=== PATIENT | male | born 1990 | race Caucasian/White ===

== ENCOUNTER 2023-12-12 03:13 | Emergency (ER) | payer OTHER ==
[2023-12-12 03:42] VITALS: BP 128/84; PULSE 81; RESP 16; TEMP 98.2
[2023-12-12] MEDS: LIDOCAINE 4% PATCH TOPICAL ONE (03:54)
[2023-12-12] MEDS: KETOROLAC 15 MG/ML 1 ML VIAL IM STA (03:54)
--- NOTE | 2023-12-12 04:08 | ED ---
General Adult HPI - General Chief complaint: Back Pain/Injury Stated complaint: Workers comp-back pain Time Seen by Provider: 12/12/23 03:20 Source: patient, RN notes reviewed, old records reviewed Mode of arrival: ambulatory Limitations: no limitations - History of Present Illness Initial comments: Patient is a 33-year-old male who presents to the emergency department complaining of back pain. Patient presents from work for evaluation. Injury occurred at approximately 1:30 AM. Twisted his back strangely while throwing apart and has mid back pain. Denies any low back pain. States is just right of midline. Denies any difficulty in breathing. Denies any other obvious injuries. Presents for further evaluation at this time. Denies radiation of the pain. - Related Data Previous Rx's Medication Instructions Recorded Lidocaine 5% Patch [Lidoderm 5% 1 patch TOPICAL DAILY PRN 14 Days 12/12/23 Patch] #14 patch Allergies Allergy/AdvReac Type Severity Reaction Status Date / Time No Known Allergies Allergy Verified 12/12/23 03:22 Review of Systems ROS Statement: Those systems with pertinent positive or pertinent negative responses have been documented in the HPI. Review of Systems: CONST: Denies fever EYES: Denies blurry vision ENT: Denies nasal congestion C/V: Denies Chest pain RESP: Denies shortness of breath GI: Denies abdominal pain : Denies dysuria SKIN: Denies rash. MSK: Endorses mid back pain NEURO: Denies headache ROS Other: All systems not noted in ROS Statement are negative. 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 EYES: EOMI ENT: Hearing grossly intact, normal oropharynx. RESPIRATORY: Clear breath sounds bilaterally. No wheezes, rales, or rhonchi. C/V: Regular rate and rhythm. S1 and S2 auscultated ABD: Abd is soft, nontender, nondistended EXT: Normal range of motion, no obvious deformity. Mild paraspinal muscle tenderness to palpation of the mid lumbar spine. No obvious deformities palpated of the C, T, L spines. No significant midline tenderness of the C, T, L spines. SKIN: No rashes or lesions observed on exposed skin. NEURO: Alert and oriented x 4. No focal sensory or strength deficits. Limitations: no limitations Course Vital Signs 12/12/23 03:17 Temperature 98.2 F Pulse Rate 81 Respiratory 16 Rate Blood Pressure 128/84 O2 Sat by Pulse 99 Oximetry Medical Decision Making - Medical Decision Making Was pt. sent in by a medical professional or institution (, DOMENIC, MANNEQUIN WIG MAKER, urgent care, hospital, or [place] [facility] facility...) When possible be specific @ -No Did you speak to anyone other than the patient for history (EMS, parent, family, police, friend...)? What history was obtained from this source @ -No Did you review nursing and triage notes (agree or disagree)? Why? @ -I reviewed and agree with nursing and triage notes Were old charts reviewed (outside hosp., previous admission, EMS record, old EKG, old radiological studies, urgent care reports/EKG's, [place] [facility] facility records)? Report findings @ -No old charts were reviewed Differential Diagnosis (chest pain, altered mental status, abdominal pain women, abdominal pain men, vaginal bleeding, weakness, fever, dyspnea, syncope, headache, dizziness, GI bleed, back pain, seizure, CVA, palpatations, mental health, musculoskeletal)? @ -Differential Musculoskeletal Muscular strain, contusion, ligament sprain, fracture, arthritis, septic arthritis, bursitis, cellulitis, muscle spasm, nerve compression, DVT, arterial occlusion, herpes zoster, electrolyte abnormality, tumor.... This is not meant to be in all inclusive list EKG interpreted by me (3pts min.). @ -None done X-rays interpreted by me (1pt min.). @ -Patient's x-ray negative for any obvious traumatic injury. CT interpreted by me (1pt min.). @ -None done U/S interpreted by me (1pt. min.). @ -None done What testing was considered but not performed or refused? (CT, X-rays, U/S, labs)? Why? @ -None What meds were considered but not given or refused? Why? @ -None Did you discuss the management of the patient with other professionals (professionals i.e. , DOMENIC, MANNEQUIN WIG MAKER, lab, RT, psych nurse, forensic social worker, chicken raiser, teacher, security officer, shoe parts caser)? Give summary @ -No Was smoking cessation discussed for >3mins.? @ -No Was critical care preformed (if so, how long)? @ -No Were there social determinants of health that impacted care today? How? (Homelessness, low income, unemployed, alcoholism, drug addiction, transportation, low edu. Level, literacy, decrease access to med. care, care home, rehab)? @ -No Was there de-escalation of care discussed even if they declined (Discuss DNR or withdrawal of care, Hospice)? DNR status @ -No What co-morbidities impacted this encounter? (DM, HTN, Smoking, COPD, CAD, Cancer, CVA, ARF, Chemo, Hep., AIDS, mental health diagnosis, sleep apnea, morbid obesity)? @ -None Was patient admitted / discharged? Hospital course, mention meds given and route, prescriptions, significant lab abnormalities, going to OR and other pertinent info. @ -Presents with atraumatic back pain that seems to be most likely muscle strain however we will obtain x-ray of the thoracic spine. Patient be symptomatically treated with IM Toradol as well as lidocaine patch. Vital signs within acceptable limits. No other obvious injuries. Patient was in agreement this plan. X-ray negative for any obvious traumatic injury. Update the patient. He is feeling improved. He will be given a work note. Diagnosis is thoracic back strain. Strict return precautions discussed. No evidence of cauda equina syndrome at this time. I will provide the patient with a prescription for a cane patches. I instructed the patient to follow up with their PCP in the next 1-3 days.. I explained that the patient should return to the emergency department if they experience any worsening symptoms. Strict return precautions were discussed with the patient. The patient expressed understanding of these instructions. I answered all quest ions that the patient had. The patient was discharged home in good condition with their prescriptions and follow up information. Undiagnosed new problem with uncertain prognosis? @ -No Drug Therapy requiring intensive monitoring for toxicity (Heparin, Nitro, Insulin, Cardizem)? @ -No Were any procedures done? @ -No Diagnosis/symptom? @ -Strain of thoracic back Acute, or Chronic, or Acute on Chronic? @ -Acute Uncomplicated (without systemic symptoms) or Complicated (systemic symptoms)? @ -Uncomplicated Side effects of treatment? @ -None Exacerbation, Progression, or Severe Exacerbation] @ -No Poses a threat to life or bodily function? @ -No Disposition Clinical Impression: Strain of thoracic back region Disposition: HOME SELF-CARE Condition: Good Instructions (If sedation given, give patient instructions): Thoracic Back Strain (ED) Prescriptions: Lidocaine 5% Patch [Lidoderm 5% Patch] 1 patch TOPICAL DAILY PRN 14 Days #14 patch PRN Reason: Pain Is patient prescribed a controlled substance at d/c from ED?: No Referrals: None,Stated [Primary Care Provider] - 1-2 days Time of Disposition: 04:40
--- NOTE | 2023-12-12 04:29 | XR ---
EXAM: XR Thoracic Spine, 2 Views CLINICAL HISTORY: ITS.REASON XR Reason: pain mid t spine, atraumatic TECHNIQUE: Frontal and lateral views of the thoracic spine. COMPARISON: No relevant prior studies available. FINDINGS: Vertebrae: No acute fracture. Normal sagittal alignment. Disc spaces: No significant narrowing. Soft tissues: Unremarkable. IMPRESSION: No acute osseous findings.
== END 2023-12-12 04:45 | disposition home or self-care (01) ==
LOC: EC 03:13
DX: S29.012A Strain of muscle and tendon of back wall of thorax, initial encounter (principal); F17.200 Nicotine dependence, unspecified, uncomplicated; X50.1XXA Overexertion from prolonged static or awkward postures, initial encounter
CPT/HCPCS: 72070; 99283; 96372; J1885

== ENCOUNTER → 2023-12-19 | Outpatient (CLI) | payer OTHER ==
--- NOTE | 2023-12-19 12:01 | XR ---
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 5 lumbar type vertebral bodies. Vertebral body heights are pr eserved and alignment is maintained. Impression: No vertebral compression collapse or malalignment.
== END | disposition home or self-care (01) ==
LOC: RADXRMAIN 10:49
PROVIDERS: ATTEND Emergency Medicine
DX: S23.3XXA Sprain of ligaments of thoracic spine, initial encounter (principal); X58.XXXA Exposure to other specified factors, initial encounter
CPT/HCPCS: 72100

== ENCOUNTER 2023-12-30 11:24 | Emergency (ER) | payer OTHER ==
[2023-12-30 12:20] LABS: ALT 28 U/L (4-49); AST 28 U/L (17-59); African American GFR (CKD) >90 (>60 ml/min/1.73 sqM); Albumin 3.1 g/dL (3.5-5.0); Alkaline Phosphatase 86 U/L (38-126); Amylase 32 U/L (30-110); Anion Gap 4 mmol/L; Blood Urea Nitrogen 12 mg/dL (9-20); Calcium 8.2 mg/dL (8.4-10.2); Carbon Dioxide 27 mmol/L (22-30); Chloride 106 mmol/L (98-107); Glucose 100 mg/dL (74-99); Lipase 37 U/L (23-300); Non-African American GFR(CKD) >90 (>60 ml/min/1.73 sqM); Potassium 3.5 mmol/L (3.5-5.1); Sodium 137 mmol/L (137-145); Total Bilirubin 0.3 mg/dL (0.2-1.3); Total Protein 5.4 g/dL (6.3-8.2)
[2023-12-30 12:21] LABS: Basophils % (A) 1 %; Eosinophils # (A) 0.1 k/uL (0-0.7); Eosinophils % (A) 3 %; HCT 41.4 % (39.0-53.0); HGB 13.9 gm/dL (13.0-17.5); Lymphocytes # (A) 0.8 k/uL (1.0-4.8); Lymphocytes % (A) 18 %; MCH 30.2 pg (25.0-35.0); MCHC 33.6 g/dL (31.0-37.0); MCV 89.8 fL (80.0-100.0); Monocytes # (A) 0.5 k/uL (0-1.0); Monocytes % (A) 12 %; Neutrophils # (A) 2.8 k/uL (1.3-7.7); Neutrophils % (A) 65 %; Platelet Count 140 k/uL (150-450); RBC 4.61 m/uL (4.30-5.90); RDW 12.4 % (11.5-15.5); WBC 4.3 k/uL (3.8-10.6)
--- NOTE | 2023-12-30 12:24 | ED ---
General Adult HPI - General Chief complaint: Nausea/Vomiting/Diarrhea Stated complaint: vomiting Time Seen by Provider: 12/30/23 11:30 Source: patient, RN notes reviewed Mode of arrival: ambulatory Limitations: no limitations - History of Present Illness Initial comments: 33-year-old male presents to the emergency department for evaluation of nausea, vomiting, diarrhea x 2 days. He states that he has some diffuse abdominal discomfort associated with this. Patient reports that he is "unable to keep anything down." He has not been running fevers. Denies any recent antibiotic use or travel. - Related Data Previous Rx's Medication Instructions Recorded Lidocaine 5% Patch [Lidoderm 5% 1 patch TOPICAL DAILY PRN 14 Days 12/12/23 Patch] #14 patch Ondansetron Odt [Zofran Odt] 4 mg PO Q8HR PRN #10 tab 12/30/23 Allergies Allergy/AdvReac Type Severity Reaction Status Date / Time No Known Allergies Allergy Verified 12/12/23 03:22 Review of Systems ROS Statement: Those systems with pertinent positive or pertinent negative responses have been documented in the HPI. ROS Other: All systems not noted in ROS Statement are negative. 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 Absent: scleral icterus, conjunctival injection, periorbital swelling ENT exam: Present: normal exam, mucous membranes moist Neck exam: Present: normal inspection. Absent: tenderness, meningismus, lymphadenopathy Respiratory exam: Present: normal lung sounds bilaterally. Absent: respiratory distress, wheezes, rales, rhonchi, stridor Cardiovascular Exam: Present: regular rate, normal rhythm, normal heart sounds. Absent: systolic murmur, diastolic murmur, rubs, gallop, clicks GI/Abdominal exam: Present: soft, normal bowel sounds. Absent: distended, tenderness, guarding, rebound, rigid Extremities exam: Present: normal inspection, full ROM, normal capillary refill. Absent: tenderness, pedal edema, joint swelling, calf tenderness Back exam: Present: normal inspection Neurological exam: Present: alert, oriented X3 Psychiatric exam: Present: normal affect, normal mood Skin exam: Present: warm, dry, intact, normal color. Absent: rash Course Vital Signs 12/30/23 12/30/23 12/30/23 11:25 14:00 14:38 Temperature 97.4 F L 98.2 F 98.0 F Pulse Rate 89 84 80 Respiratory 16 18 20 Rate Blood Pressure 126/82 122/78 120/72 O2 Sat by Pulse 99 99 99 Oximetry Medical Decision Making - Medical Decision Making Was pt. sent in by a medical professional or institution (, PA, MISSION COORDINATOR, urgent care, hospital, or correction...) When possible be specific @ -No Did you speak to anyone other than the patient for history (EMS, parent, family, police, friend...)? What history was obtained from this source @ -No Did you review nursing and triage notes (agree or disagree)? Why? @ -I reviewed and agree with nursing and triage notes Were old charts reviewed (outside hosp., previous admission, EMS record, old EKG, old radiological studies, urgent care reports/EKG's, correction records)? Report findings @ -No old charts were reviewed Differential Diagnosis (chest pain, altered mental status, abdominal pain women, abdominal pain men, vaginal bleeding, weakness, fever, dyspnea, syncope, headache, dizziness, GI bleed, back pain, seizure, CVA, palpatations, mental health, musculoskeletal)? @ -Differential Abdominal Pain Men: Appendicitis, cholecystitis, diverticulosis, ischemic bowel, pancreatitis, hepatitis, UTI, gastroenteritis, AAA, incarcerated hernia, bowel obstruction, constipation, inflammatory bowel, hepatitis, peptic ulcer disease, splenic infarction, perforated viscus, testicular torsion, this is not meant to be an all-inclusive list EKG interpreted by me (3pts min.). @ -None X-rays interpreted by me (1pt min.). @ -None done CT interpreted by me (1pt min.). @ -None done U/S interpreted by me (1pt. min.). @ -None done What testing was considered but not performed or refused? (CT, X-rays, U/S, labs)? Why? @ -None What meds were considered but not given or refused? Why? @ -None Did you discuss the management of the patient with other professionals (professionals i.e. , PA, MISSION COORDINATOR, lab, RT, psych nurse, social welfare clerk, general magistrate, teacher, chief media officer, ed case manager)? Give summary @ -No Was smoking cessation discussed for >3mins.? @ -No Was critical care preformed (if so, how long)? @ -No Were there social determinants of health that impacted care today? How? (Homelessness, low income, unemployed, alcoholism, drug addiction, transportation, low edu. Level, literacy, decrease access to med. care, intermediate, rehab)? @ -No Was there de-escalation of care discussed even if they declined (Discuss DNR or withdrawal of care, Hospice)? DNR status @ -No What co-morbidities impacted this encounter? (DM, HTN, Smoking, COPD, CAD, Cancer, CVA, ARF, Chemo, Hep., AIDS, mental health diagnosis, sleep apnea, morbid obesity)? @ -None Was patient admitted / discharged? Hospital course, mention meds given and route, prescriptions, significant lab abnormalities, going to OR and other pertinent info. @ -Discharged. Patient presented to the emergency department for evaluation of nausea, vomiting, diarrhea x 2 days. He states that he is unable to keep anything down. Laboratory studies obtained which are essentially unremarkable including CBC, CMP, amylase, lipase. Patient was provided 2 L of normal saline in the emergency department along with Zofran. He states that he is feeling better after this. He is able to tolerate oral intake following this. Discussed symptomatic treatment at this time, hydrating and utilizing Zofran for nausea. Patient understanding agreeable with plan. Patient stable to discharge. Case discussed with Dr. Green Undiagnosed new problem with uncertain prognosis? @ -No Drug Therapy requiring intensive monitoring for toxicity (Heparin, Nitro, Insulin, Cardizem)? @ -No Were any procedures done? @ -No Diagnosis/symptom? @ -Gastroenteritis Acute, or Chronic, or Acute on Chronic? @ -Acute Uncomplicated (without systemic symptoms) or Complicated (systemic symptoms)? @ -Uncomplicated Side effects of treatment? @ -No Exacerbation, Progression, or Severe Exacerbation? @ -No Poses a threat to life or bodily function? How? (Chest pain, [place], [place], pneumonia, PE, COPD, DKA, ARF, appy, cholecystitis, CVA, Diverticulitis, Homicidal, Suicidal, threat to staff... and all critical care pts) @ -No - Lab Data Result diagrams: 12/30/23 11:57 12/30/23 11:57 Lab Results 12/30/23 12/30/23 12/30/23 Range/Units 11:57 11:57 11:57 WBC 4.3 (3.8-10.6) k/uL RBC 4.61 (4.30-5.90) m/uL Hgb 13.9 (13.0-17.5) gm/dL Hct 41.4 (39.0-53.0) % MCV 89.8 (80.0-100.0) fL MCH 30.2 (25.0-35.0) pg MCHC 33.6 (31.0-37.0) g/dL RDW 12.4 (11.5-15.5) % Plt Count 140 L (150-450) k/uL MPV 8.0 Neutrophils % 65 % Lymphocytes % 18 % Monocytes % 12 % Eosinophils % 3 % Basophils % 1 % Neutrophils # 2.8 (1.3-7.7) k/uL Lymphocytes # 0.8 L (1.0-4.8) k/uL Monocytes # 0.5 (0-1.0) k/uL Eosinophils # 0.1 (0-0.7) k/uL Basophils # 0.0 (0-0.2) k/uL Sodium 137 (137-145) mmol/L Potassium 3.5 (3.5-5.1) mmol/L Chloride 106 (98-107) mmol/L Carbon Dioxide 27 (22-30) mmol/L Anion Gap 4 mmol/L BUN 12 (9-20) mg/dL Creatinine 0.62 L (0.66-1.25) mg/dL Est GFR (CKD-EPI)AfAm >90 (>60 ml/min/1.73 sqM) Est GFR (CKD-EPI)NonAf >90 (>60 ml/min/1.73 sqM) Glucose 100 H (74-99) mg/dL Calcium 8.2 L (8.4-10.2) mg/dL Total Bilirubin 0.3 (0.2-1.3) mg/dL AST 28 (17-59) U/L ALT 28 (4-49) U/L Alkaline Phosphatase 86 (38-126) U/L Total Protein 5.4 L (6.3-8.2) g/dL Albumin 3.1 L (3.5-5.0) g/dL Amylase 32 (30-110) U/L Lipase 37 (23-300) U/L Influenza Type A (PCR) Not Detected (Not Detectd) Influenza Type B (PCR) Not Detected (Not Detectd) RSV (PCR) Not Detected (Not Detectd) SARS-CoV-2 (PCR) Not Detected (Not Detectd) Disposition Clinical Impression: Nausea & vomiting, Gastroenteritis Disposition: HOME SELF-CARE Condition: Stable Instructions (If sedation given, give patient instructions): Acute Nausea and Vomiting (ED) Additional Instructions: Please follow up with your primary care provider. Ensure you are hydrating well. Utilize nausea medication as needed. Return to the emergency department for new or worsening symptoms. Prescriptions: Ondansetron Odt [Zofran Odt] 4 mg PO Q8HR PRN #10 tab PRN Reason: Nausea Is patient prescribed a controlled substance at d/c from ED?: No Referrals: Domenico Lebron MD [Primary Care Provider] - 1-2 days
[2023-12-30] MEDS: ONDANSETRON 4 MG/2 ML VIAL IVP STA (12:48)
[2023-12-30] MEDS: SODIUM CHLORIDE 0.9% 2,000 ML IV STA (12:48)
[2023-12-30] MEDS: ONDANSETRON 4 MG ODT STARTER PACK 2 TAB BTL PO STA (14:35)
[2023-12-30 14:40] VITALS: BP 120/72; PULSE 80; RESP 20; TEMP 98
== END 2023-12-30 14:40 | disposition home or self-care (01) ==
LOC: EC 11:24
DX: K52.9 Noninfective gastroenteritis and colitis, unspecified (principal); F17.200 Nicotine dependence, unspecified, uncomplicated
CPT/HCPCS: 99284; 96374; 96361 ×2; 36415; 80053; 82150; 83690; 85025; 87636; J2405; S0119

== ENCOUNTER 2024-02-27 09:53 | Emergency (ER) | payer OTHER ==
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
[2024-02-27] MEDS: HYDROmorphone 0.5 MG/0.5 ML SYRINGE IM STA (10:38)
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
[2024-02-27 11:39] VITALS: BP 125/88; PULSE 90; RESP 18; TEMP 98.4
== END 2024-02-27 11:53 | disposition home or self-care (01) ==
LOC: EC 09:53
DX: S92.911A Unspecified fracture of right toe(s), initial encounter for closed fracture (principal); F17.200 Nicotine dependence, unspecified, uncomplicated; Z88.0 Allergy status to penicillin; W22.8XXA Striking against or struck by other objects, initial encounter; Y93.55 Activity, bike riding
CPT/HCPCS: 99283; 73130; 73562; 96372; J1170

== ENCOUNTER 2024-04-25 18:41 | Emergency (ER) | payer OTHER ==
[2024-04-25 19:05] VITALS: TEMP 98.1
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
[2024-04-25 21:52] VITALS: BP 128/78; PULSE 60; RESP 16
== END 2024-04-25 21:44 | disposition home or self-care (01) ==
LOC: EC 18:41
DX: S93.401A Sprain of unspecified ligament of right ankle, initial encounter (principal); F17.200 Nicotine dependence, unspecified, uncomplicated; F12.90 Cannabis use, unspecified, uncomplicated; Z88.0 Allergy status to penicillin; X50.0XXA Overexertion from strenuous movement or load, initial encounter
CPT/HCPCS: 99283

== ENCOUNTER 2024-05-09 01:07 | Emergency (ER) | payer OTHER ==
[2024-05-09 01:14] VITALS: RESP 16
[2024-05-09 02:01] LABS: Basophils % (A) 1 %; Eosinophils # (A) 0.1 k/uL (0-0.7); Eosinophils % (A) 2 %; HCT 38.7 % (39.0-53.0); HGB 13.1 gm/dL (13.0-17.5); Lymphocytes # (A) 1.2 k/uL (1.0-4.8); Lymphocytes % (A) 15 %; MCH 30.8 pg (25.0-35.0); MCHC 33.9 g/dL (31.0-37.0); MCV 90.9 fL (80.0-100.0); Monocytes # (A) 0.7 k/uL (0-1.0); Monocytes % (A) 9 %; Neutrophils # (A) 5.9 k/uL (1.3-7.7); Neutrophils % (A) 73 %; Platelet Count 195 k/uL (150-450); RBC 4.25 m/uL (4.30-5.90); RDW 12.7 % (11.5-15.5); WBC 8.1 k/uL (3.8-10.6)
--- NOTE | 2024-05-09 02:02 | ED ---
Dizziness HPI - General Chief Complaint: Syncope Stated Complaint: Possible Heat Stroke Time Seen by Provider: 05/09/24 01:58 Source: patient Mode of arrival: ambulatory Limitations: no limitations - History of Present Illness Initial Comments: Patient is a 33-year-old man who states that he was working tonight when he started to feel lightheaded, " like I was going to go out" patient states that it was rather hot at work and he was exerting himself. He did not have any chest pain or dyspnea. He was feeling lightheaded and like he was going to fall over. 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 He states that the symptoms have resolved. MD Complaint: lightheadedness, near syncope -: minutes(s) Timing: sudden onset Description: lightheadedness History of Trauma: No Severity: moderate Worsens With: exertion Associated Symptoms: denies other symptoms - Related Data Previous Rx's Medication Instructions Recorded Lidocaine 5% Patch [Lidoderm 5% 1 patch TOPICAL DAILY PRN 14 Days 12/12/23 Patch] #14 patch Ondansetron Odt [Zofran Odt] 4 mg PO Q8HR PRN #10 tab 12/30/23 Allergies Allergy/AdvReac Type Severity Reaction Status Date / Time Penicillins Allergy Swelling Verified 05/09/24 01:14 Review of Systems ROS Statement: Those systems with pertinent positive or pertinent negative responses have been documented in the HPI. ROS Other: All systems not noted in ROS Statement are negative. Constitutional: Denies: fever, chills, weakness Eyes: Denies: vision change Respiratory: Denies: cough, dyspnea Cardiovascular: Reports: syncope (Near Syncopal episode). 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 Absent: scleral icterus, conjunctival injection Neck exam: Present: normal inspection Respiratory exam: Present: normal lung sounds bilaterally. Absent: respiratory distress, wheezes, rales, rhonchi, stridor, accessory muscle use Cardiovascular Exam: Present: regular rate, normal rhythm, normal heart sounds. Absent: systolic murmur, diastolic murmur, rubs, gallop GI/Abdominal exam: Present: soft. Absent: distended, tenderness, guarding, rebound, rigid, mass Extremities exam: Present: normal inspection, normal capillary refill. Absent: pedal edema, calf tenderness Back exam: Present: normal inspection. Absent: CVA tenderness (R), CVA tenderness (L) Neurological exam: Present: alert Skin exam: Present: warm, dry, intact, normal color. Absent: rash Course Vital Signs 05/09/24 05/09/24 01:09 04:08 Temperature 97.9 F 98.2 F Pulse Rate 56 L 62 Respiratory 16 16 Rate Blood Pressure 123/77 128/79 O2 Sat by Pulse 98 98 Oximetry EKG Findings - EKG Results: EKG: interpreted by ERMD, sinus rhythm, normal QRS, normal ST/T EKG shows: bradycardia (Rate 52 bpm) - Blocks, [place], Hypertrophy, ST Abn: QRS axis and voltage: right axis deviation (+90 to +180) (Borderline right axis deviation) Medical Decision Making - Medical Decision Making Was pt. sent in by a medical professional or institution (, PA, MOLD STACKER, urgent care, hospital, or alf...) When possible be specific @ -[No] Did you speak to anyone other than the patient for history (EMS, parent, family, police, friend...)? What history was obtained from this source @ -[No] Did you review nursing and triage notes (agree or disagree)? Why? @ -[I reviewed and agree with nursing and triage notes] Were old charts reviewed (outside hosp., previous admission, EMS record, old EKG, old radiological studies, urgent care reports/EKG's, alf records)? Report findings @ -[No old charts were reviewed] Differential Diagnosis (chest pain, altered mental status, abdominal pain women, abdominal pain men, vaginal bleeding, weakness, fever, dyspnea, syncope, headache, dizziness, GI bleed, back pain, seizure, CVA, palpatations, mental health, musculoskeletal)? @ -Differential Syncope: Valvular disease, hypertrophic cardiomyopathy, pulmonary embolism, tamponade, tachycardia, bradycardia, OR, hypovolemia, hemorrhage, dissection, anemia, intracranial hemorrhage, seizure, hypoglycemia, carbon monoxide poisoning, this is not meant to be an all-inclusive list. EKG interpreted by me (3pts min.). @ -[I interpreted as above X-rays interpreted by me (1pt min.). @ -[None done] CT interpreted by me (1pt min.). @ -[None done] U/S interpreted by me (1pt. min.). @ -[None done] What testing was considered but not performed or refused? (CT, X-rays, U/S, labs)? Why? @ -[None] What meds were considered but not given or refused? Why? @ -[None] Did you discuss the management of the patient with other professionals (professionals i.e. , PA, MOLD STACKER, lab, RT, psych nurse, social media job titles, volcanologist, teacher, agricultural loan officer, pillowcase turner)? Give summary @ -[No] Was smoking cessation discussed for >3mins.? @ -[No] Was critical care preformed (if so, how long)? @ -[No] Were there social determinants of health that impacted care today? How? (Homelessness, low income, unemployed, alcoholism, drug addiction, transportation, low edu. Level, literacy, decrease access to med. care, assisted, re hab)? @ -[No] Was there de-escalation of care discussed even if they declined (Discuss DNR or withdrawal of care, Hospice)? DNR status @ -[No] What co-morbidities impacted this encounter? (DM, HTN, Smoking, COPD, CAD, Cancer, CVA, ARF, Chemo, Hep., AIDS, mental health diagnosis, sleep apnea, morbi d obesity)? @ -[None] Was patient admitted / discharged? Hospital course, mention meds given and ro drew, prescriptions, significant lab abnormalities, going to OR and other pertinent info. @ -[Patient is a 33-year-old man presenting with near syncopal episode at work. The patient's physical exam and workup unremarkable. ECG is normal sinus rhythm. Consistent with vasovagal syncope due to heat. Patient will be stable for further evaluation as outpatient Undiagnosed new problem with uncertain prognosis? @ -[No] Drug Therapy requiring intensive monitoring for toxicity (Heparin, Nitro, Insul in, Cardizem)? @ -[No] Were any procedures done? @ -[No] Diagnosis/symptom? @ -Acute near syncopal episode Acute, or Chronic, or Acute on Chronic? @ -[Acute Uncomplicated (without systemic symptoms) or Complicated (systemic symptoms)? @ -[Uncomplicated Side effects of treatment? @ -[No] Exacerbation, Progression, or Severe Exacerbation? @ -[No] Poses a threat to life or bodily function? How? (Chest pain, USA, OR, pneumonia, PE, COPD, DKA, ARF, appy, cholecystitis, CVA, Diverticulitis, Homicidal, Suicidal, threat to staff... and all critical care pts) @ -[No] - Lab Data Result diagrams: 05/09/24 01:56 05/09/24 01:56 Lab Results 05/09/24 05/09/24 Range/Units 01:56 01:56 WBC 8.1 (3.8-10.6) k/uL RBC 4.25 L (4.30-5.90) m/uL Hgb 13.1 (13.0-17.5) gm/dL Hct 38.7 L (39.0-53.0) % MCV 90.9 (80.0-100.0) fL MCH 30.8 (25.0-35.0) pg MCHC 33.9 (31.0-37.0) g/dL RDW 12.7 (11.5-15.5) % Plt Count 195 (150-450) k/uL MPV 8.0 Neutrophils % 73 % Lymphocytes % 15 % Monocytes % 9 % Eosinophils % 2 % Basophils % 1 % Neutrophils # 5.9 (1.3-7.7) k/uL Lymphocytes # 1.2 (1.0-4.8) k/uL Monocytes # 0.7 (0-1.0) k/uL Eosinophils # 0.1 (0-0.7) k/uL Basophils # 0.0 (0-0.2) k/uL Sodium 135 L (137-145) mmol/L Potassium 4.1 (3.5-5.1) mmol/L Chloride 104 (98-107) mmol/L Carbon Dioxide 26 (22-30) mmol/L Anion Gap 5 mmol/L BUN 16 (9-20) mg/dL Creatinine 0.76 (0.66-1.25) mg/dL Est GFR (CKD-EPI)AfAm >90 (>60 ml/min/1.73 sqM) Est GFR (CKD-EPI)NonAf >90 (>60 ml/min/1.73 sqM) Glucose 112 H (74-99) mg/dL Calcium 9.2 (8.4-10.2) mg/dL Total Bilirubin 0.4 (0.2-1.3) mg/dL AST 23 (17-59) U/L ALT 13 (4-49) U/L Alkaline Phosphatase 81 (38-126) U/L Total Protein 6.1 L (6.3-8.2) g/dL Albumin 3.9 (3.5-5.0) g/dL Disposition Clinical Impression: Near syncope Disposition: HOME SELF-CARE Condition: Good Is patient prescribed a controlled substance at d/c from ED?: No Referrals: Gab Beverly MD [Primary Care Provider] - 1-2 days
[2024-05-09 02:18] LABS: ALT 13 U/L (4-49); AST 23 U/L (17-59); African American GFR (CKD) >90 (>60 ml/min/1.73 sqM); Albumin 3.9 g/dL (3.5-5.0); Alkaline Phosphatase 81 U/L (38-126); Anion Gap 5 mmol/L; Blood Urea Nitrogen 16 mg/dL (9-20); Calcium 9.2 mg/dL (8.4-10.2); Carbon Dioxide 26 mmol/L (22-30); Chloride 104 mmol/L (98-107); Glucose 112 mg/dL (74-99); Non-African American GFR(CKD) >90 (>60 ml/min/1.73 sqM); Potassium 4.1 mmol/L (3.5-5.1); Sodium 135 mmol/L (137-145); Total Bilirubin 0.4 mg/dL (0.2-1.3); Total Protein 6.1 g/dL (6.3-8.2)
[2024-05-09] MEDS: SODIUM CHLORIDE 0.9% 1,000 ML IV ONE (03:07)
[2024-05-09 04:09] VITALS: BP 128/79; PULSE 62; TEMP 98.2
== END 2024-05-09 04:09 | disposition home or self-care (01) ==
LOC: EC 01:07
DX: R55 Syncope and collapse (principal); F17.200 Nicotine dependence, unspecified, uncomplicated; Z88.0 Allergy status to penicillin
CPT/HCPCS: 36415; 80053; 85025; 93005; 96360; 99284

== ENCOUNTER 2024-06-13 03:46 | Emergency (ER) | payer OTHER ==
[2024-06-13] MEDS: LORazepam 2 MG/ML INJ IV STA (04:47)
--- NOTE | 2024-06-13 04:49 | ED ---
Seizure HPI <Fidelina Gatica - Last Filed: 06/13/24 07:13> - General Source: patient, RN notes reviewed, old records reviewed Mode of arrival: wheelchair Limitations: no limitations - History of Present Illness MD Complaint: seizure, feel seizure coming on, loss of consciousness, shaking -: hour(s) Description of Episode: loss of consciousness, tonic-clonic movement -: second(s) Witnessed: yes - by bystander Trauma: Yes Seizure History: known seizure disorder Place: home <Miguel Angel Martinez - Last Filed: 06/15/24 22:51> - General Chief Complaint: Seizure Stated Complaint: Seizure Time Seen by Provider: 06/13/24 03:51 - History of Present Illness Initial Comments: This is a 33-year-old male with severe anxiety and seizure. Patient presents with seizure today for recurrent seizures due to stress (Miguel Angel Martinez) - Related Data Previous Rx's Medication Instructions Recorded Lidocaine 5% Patch [Lidoderm 5% 1 patch TOPICAL DAILY PRN 14 Days 12/12/23 Patch] #14 patch Ondansetron Odt [Zofran Odt] 4 mg PO Q8HR PRN #10 tab 12/30/23 Allergies Allergy/AdvReac Type Severity Reaction Status Date / Time Penicillins Allergy Swelling Verified 05/09/24 01:14 Review of Systems ROS Other: All systems not noted in ROS Statement are negative. <Fidelina Gatica - Last Filed: 06/13/24 07:13> ROS Other: All systems not noted in ROS Statement are negative. <Miguel Angel Martinez - Last Filed: 06/15/24 22:51> ROS Statement: Those systems with pertinent positive or pertinent negative responses have been documented in the HPI. 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 Absent: scleral icterus, conjunctival injection, periorbital swelling ENT exam: Present: normal exam, mucous membranes moist Neck exam: Present: normal inspection. Absent: tenderness, meningismus, lymphadenopathy Respiratory exam: Present: normal lung sounds bilaterally. Absent: respiratory distress, wheezes, rales, rhonchi, stridor Cardiovascular Exam: Present: regular rate, normal rhythm, normal heart sounds. Absent: systolic murmur, diastolic murmur, rubs, gallop, clicks GI/Abdominal exam: Present: soft, normal bowel sounds. Absent: distended, t enderness, guarding, rebound, rigid Extremities exam: Present: normal inspection, full ROM, normal capillary refill. Absent: tenderness, pedal edema, joint swelling, calf tenderness Back exam: Present: normal inspection Neurological exam: Present: alert, oriented X3, CN II-XII intact Psychiatric exam: Present: normal affect, normal mood Skin exam: Present: warm, dry, intact, normal color. Absent: rash <Miguel Angel Martinez - Last Filed: 06/15/24 22:51> Course <Miguel Angel Martinez - Last Filed: 06/15/24 22:51> Vital Signs 06/13/24 06/13/24 06/13/24 03:51 04:57 07:15 Temperature 98 F 98.8 F Pulse Rate 57 L 56 L 63 Respiratory 18 16 16 Rate Blood Pressure 141/95 123/83 O2 Sat by Pulse 100 97 99 Oximetry - Reevaluation(s) Reevaluation #1: 06/13/24 06:08 Medical records reviewed (Miguel Angel Martinez) Reevaluation #2: 06/13/24 06:08 Symptoms unchanged (Miguel Angel Martinez) Reevaluation #3: 06/13/24 06:08 Informed of results questions answered (Miguel Angel Martinez) Reevaluation #4: Was pt. sent in by a medical professional or institution (, PA, CRUSHER AND BLENDER OPERATOR, urgent care, hospital, or prison...) When possible be specific @ -no Did you speak to anyone other than the patient for history (EMS, parent, family, police, friend...)? What history was obtained from this source @ -no Did you review nursing and triage notes (agree or disagree)? Why? @ -agree Are old charts reviewed (outside hosp., previous admission, EMS record, old EKG, old radiological studies, urgent care reports/EKG's, prison records)? Report findings @ -yes Differential Diagnosis (chest pain, altered mental status, abdominal pain women, abdominal pain men, vaginal bleeding, weakness, fever, dyspnea, syncope, headache, dizziness, GI bleed, back pain, seizure, CVA, palpatations, mental health, musculoskeletal)? @ -prior EKG interpreted by me (3pts min.). @ -yes X-rays interpreted by me (1pt min.). @ -no CT interpreted by me (1pt min.). @ -no U/S interpreted by me (1pt. min.). @ -no What testing was considered but not performed or refused? (CT, X-rays, U/S, labs)? Why? @ -none What meds were considered but not given or refused? Why? @ -none Did you discuss the management of the patient with other professionals (professionals i.e. , PA, CRUSHER AND BLENDER OPERATOR, lab, RT, psych nurse, social secretary, rigging worker, t eacher, returning officer, case liner)? Give summary @ -no Was smoking cessation discussed for >3mins.? @ -no Was critical care preformed (if so, how long)? @ -no Were there social determinants of health that impacted care today? How? (Homelessness, low income, unemployed, alcoholism, drug addiction, transportation, low edu. Level, literacy, decrease access to med. care, group home, rehab)? @ -none Was there de-escalation of care discussed even if they declined (Discuss DNR or withdrawal of care, Hospice)? DNR status @ -no What co-morbidities impacted this encounter? (DM, HTN, Smoking, COPD, CAD, Cancer, CVA, ARF, Chemo, Hep., AIDS, mental health diagnosis, sleep apnea, morbid obesity)? @ -none Was patient admitted / discharged? Hospital course, mention meds given and route, prescriptions, significant lab abnormalities, going to OR and other pertinent info. @ - 33 male recurrent seizure has no significant seizure activity here in the ER feels well can be discharged home anxiety improved Discharge Undiagnosed new problem with uncertain prognosis? @ -no Drug Therapy requiring intensive monitoring for toxicity (Heparin, Nitro, Insulin, Cardizem)? @ -no Were any procedures done? @ -no Diagnosis/symptom? @ -recurrent seizure and anxiety Acute, or Chronic, or Acute on Chronic? @ -Acute Uncomplicated (without systemic symptoms) or Complicated (systemic symptoms)? @ -Complicated Side effects of treatment? @ -no Exacerbation, Progression, or Severe Exacerbation? @ -exacerbation Poses a threat to life or bodily function? How? (Chest pain, [place], [place], pneumonia, PE, COPD, DKA, ARF, appy, cholecystitis, CVA, Diverticulitis, Homicidal, Suicidal, threat to staff... and all critical care pts) @ -yes recurrent seizures (Miguel Angel Martinez) Reevaluation #5: Differential Seizure: Recurrent seizure disorder, febrile seizure, alcohol withdrawal, stimulants, meningitis, encephalitis, intercranial hemorrhage, intracranial tumor, stroke, e clampsia, thyrotoxicosis, hypocalcemia, hyponatremia, hypernatremia, hypomagnesemia, psychogenic, this is not meant to be an all-inclusive list. (Miguel Angel Martinez) Medical Decision Making - Lab Data Result diagrams: 06/13/24 04:50 06/13/24 04:50 <Fidelina Gatica - Last Filed: 06/13/24 07:13> - Lab Data Result diagrams: 06/13/24 04:50 06/13/24 04:50 - EKG Data -: EKG Interpreted by Me (EKG is sinus bradycardia 54 MO 151 QRS 86 QTc 400) <Miguel Angel Martinez - Last Filed: 06/15/24 22:51> - Medical Decision Making 33 male recurrent seizure has no significant seizure activity here in the ER feels well can be discharged home anxiety improved (Miguel Angel Martinez) - Lab Data Lab Results 06/13/24 06/13/24 Range/Units 04:50 04:50 WBC 4.7 (3.8-10.6) k/uL RBC 4.20 L (4.30-5.90) m/uL Hgb 12.7 L (13.0-17.5) gm/dL Hct 38.5 L (39.0-53.0) % MCV 91.6 (80.0-100.0) fL MCH 30.2 (25.0-35.0) pg MCHC 32.9 (31.0-37.0) g/dL RDW 13.1 (11.5-15.5) % Plt Count 203 (150-450) k/uL MPV 7.8 Neutrophils % 63 % Lymphocytes % 23 % Monocytes % 10 % Eosinophils % 2 % Basophils % 1 % Neutrophils # 3.0 (1.3-7.7) k/uL Lymphocytes # 1.1 (1.0-4.8) k/uL Monocytes # 0.5 (0-1.0) k/uL Eosinophils # 0.1 (0-0.7) k/uL Basophils # 0.0 (0-0.2) k/uL Sodium 137 (137-145) mmol/L Potassium 4.0 (3.5-5.1) mmol/L Chloride 104 (98-107) mmol/L Carbon Dioxide 26 (22-30) mmol/L Anion Gap 7 mmol/L BUN 17 (9-20) mg/dL Creatinine 0.86 (0.66-1.25) mg/dL Est GFR (CKD-EPI)AfAm >90 (>60 ml/min/1.73 sqM) Est GFR (CKD-EPI)NonAf >90 (>60 ml/min/1.73 sqM) Glucose 143 H (74-99) mg/dL Calcium 9.1 (8.4-10.2) mg/dL Magnesium 1.8 (1.6-2.3) mg/dL Total Bilirubin 0.4 (0.2-1.3) mg/dL AST 20 (17-59) U/L ALT 13 (4-49) U/L Alkaline Phosphatase 86 (38-126) U/L Total Protein 6.2 L (6.3-8.2) g/dL Albumin 3.9 (3.5-5.0) g/dL Salicylates <1.0 mg/dL Acetaminophen <10.0 ug/mL Disposition <Fidelina Gatica - Last Filed: 06/13/24 07:13> Is patient prescribed a controlled substance at d/c from ED?: No Time of Disposition: 06:00 <Miguel Angel Martinez - Last Filed: 06/15/24 22:51> Clinical Impression: Epileptic seizure, generalized Disposition: HOME SELF-CARE Condition: Fair Instructions (If sedation given, give patient instructions): Seizure/Epilepsy Discharge Instructions & Follow-Up, Recurrent Seizures in Adults (ED) Referrals: Gab Beverly MD [Primary Care Provider] - 1-2 days Forms: Work/School Release
[2024-06-13 04:59] VITALS: RESP 16
[2024-06-13 05:04] LABS: Basophils % (A) 1 %; Eosinophils # (A) 0.1 k/uL (0-0.7); Eosinophils % (A) 2 %; HCT 38.5 % (39.0-53.0); HGB 12.7 gm/dL (13.0-17.5); Lymphocytes # (A) 1.1 k/uL (1.0-4.8); Lymphocytes % (A) 23 %; MCH 30.2 pg (25.0-35.0); MCHC 32.9 g/dL (31.0-37.0); MCV 91.6 fL (80.0-100.0); Mean Platelet Volume 7.8; Monocytes # (A) 0.5 k/uL (0-1.0); Monocytes % (A) 10 %; Neutrophils % (A) 63 %; Platelet Count 203 k/uL (150-450); RDW 13.1 % (11.5-15.5); WBC 4.7 k/uL (3.8-10.6)
[2024-06-13 05:22] LABS: ALT 13 U/L (4-49); AST 20 U/L (17-59); Acetaminophen <10.0 ug/mL; African American GFR (CKD) >90 (>60 ml/min/1.73 sqM); Albumin 3.9 g/dL (3.5-5.0); Alkaline Phosphatase 86 U/L (38-126); Anion Gap 7 mmol/L; Blood Urea Nitrogen 17 mg/dL (9-20); Calcium 9.1 mg/dL (8.4-10.2); Carbon Dioxide 26 mmol/L (22-30); Chloride 104 mmol/L (98-107); Glucose 143 mg/dL (74-99); Magnesium 1.8 mg/dL (1.6-2.3); Non-African American GFR(CKD) >90 (>60 ml/min/1.73 sqM); Salicylate <1.0 mg/dL; Sodium 137 mmol/L (137-145); Total Bilirubin 0.4 mg/dL (0.2-1.3); Total Protein 6.2 g/dL (6.3-8.2)
[2024-06-13 07:19] VITALS: BP 123/83; PULSE 63; TEMP 98.8
== END 2024-06-13 07:26 | disposition home or self-care (01) ==
LOC: EC 03:46 → SUPCPDRO 03:46 → EC 07:26
CPT/HCPCS: 36415; 80053; 80143; 80179; 83735; 85025; 93005; 96374; 99284

== ENCOUNTER 2024-07-14 12:56 | Day surgery (SDC) | payer OTHER ==
[2024-07-11 10:33] VITALS: BMI 22.3
[~2024-07-14 12:56] MED LIST: HYDROmorphone 0.5 MG/0.5 ML SYRINGE IVP PRN; LACTATED RINGERS 1,000 ML IV SCH; LIDOCAINE 1% (10MG/ML) FOR IV START INTRADERMA PRN; droPERidol 5 MG/2 ML VIAL IVP PRN
[2024-07-14 13:27] VITALS: RESP 16
[2024-07-14] MEDS: LACTATED RINGERS 1,000 ML IV ONE (13:35)
[2024-07-14] MEDS: ONDANSETRON 4 MG/2 ML VIAL IVP ONE (13:38)
[2024-07-14] MEDS: DEXAMETHASONE SOD PHOSPHATE 4 MG/ML 1 ML VIAL IV ONE (13:38)
[2024-07-14] MEDS ORDERED: LIDOCAINE 1% INJ 10MG/ML (20 ML MDV) ONE (16:52)
[2024-07-14] MEDS ORDERED: fentaNYL (PF) 50 MCG/ML 2 ML AMP ONE (16:52)
[2024-07-14] MEDS ORDERED: MIDAZOLAM 2 MG/2 ML VIAL ONE (16:52)
[2024-07-14] MEDS ORDERED: PROPOFOL 10 MG/ML 20 ML VIAL IV ONE (16:52)
[2024-07-14] MEDS: BUPIVACAINE (PF) 0.5% 30 ML VIAL SQ ONE (17:12)
[2024-07-14] MEDS: LIDOCAINE 1%-EPI 1:100,000 20 ML VIAL SQ ONE (17:14)
[2024-07-14] MEDS: MEPERIDINE 50 MG/ML SYRINGE IVP STA (18:00)
[2024-07-14 18:13] VITALS: TEMP 97.8
[2024-07-14 19:21] VITALS: BP 128/75; PULSE 56
--- NOTE | 2024-07-17 15:37 | P.OP ---
Date of Procedure: 07/14/24 Preoperative Diagnosis: Left ring finger distal phalanx fracture Postoperative Diagnosis: same Procedure(s) Performed: Left ring finger ORIF distal phalanx Implants: K wire Anesthesia: MONI, local Surgeon: Yessi Phillip Estimated Blood Loss (ml): 0 Pathology: none sent Condition: stable Disposition: PACU Indications for Procedure: The patient sustained a distal phalanx fracture about a month ago when a chain snapped back and hit his hand. He had some delay in presentation but even at a month from injury the finger remains painful and swollen. We have decided to proceed with ORIF. Description of Procedure: The patient, operative extremity, and procedure were identified. After consent was obtained, he was brought back to the OR. A local block was performed with lidocaine with epinephrine. The extremity was then prepped and draped in normal sterile fashion. A formal timeout was performed confirming the procedure. A finger tourniqet was applied. An H incision was made over the DIP joint. The extensor tendon was identified and protected. The fracture was just distal to the terminal attachment. An 18g needle was used to break up callous formation and mobilize the fracture. It was then reduced by hyperextending the DIP joint. The DIP joint was then stabilized with a 5.4 K wire driven retrograde through the DIP joint. Reduction was confirmed on flruoscopy. The wound was irrigated and closed with chromic suture. The pin was cup and capped with a jergins ball. Tourniquet was removed. The wound was dressed and the finger was splinted with a popsicle stick and coban. Patient was aroused and brought back to PACU in stable condition.
== END 2024-07-14 19:31 | disposition home or self-care (01) ==
LOC: OR 12:56
PROVIDERS: ATTEND Orthopaedic Surgery Hand Surgery

== ENCOUNTER 2024-07-23 03:23 | Emergency (ER) | payer OTHER ==
[2024-07-23 03:33] VITALS: RESP 18
--- NOTE | 2024-07-23 03:49 | ED ---
General Adult HPI - General Chief complaint: Extremity Problem,Nontraumatic Stated complaint: Post op-finger pain Time Seen by Provider: 07/23/24 03:35 Source: patient, RN notes reviewed, old records reviewed Mode of arrival: ambulatory Limitations: no limitations - History of Present Illness Initial comments: 34-year-old male who underwent ORIF of the distal phalanx fourth digit left hand on July 14 presenting with pain to this digit. Patient states that he excellently pinched his finger between the bed and the wall. There was no significant trauma but the patient states his home medication is not controlling his pain. He is here for pain control. - Related Data Home Medications Medication Instructions Recorded Confirmed Ferrous Sulfate [Iron] 325 mg PO DAILY 07/11/24 07/11/24 Loxapine Succinate [Loxapine] 25 mg PO HS 07/11/24 07/11/24 hydrOXYzine pamoate [Vistaril] 50 mg PO BID 07/11/24 07/11/24 lamoTRIgine [lamoTRIgine ER] 250 mg PO HS 07/11/24 07/11/24 Previous Rx's Medication Instructions Recorded methylPREDNISolone Dose Pack 4 mg PO DIRECTED #1 packet 07/14/24 [Medrol Dose Pack] traMADol HCl [Ultram] 50 mg PO Q6HR PRN #5 tab 07/14/24 Allergies Allergy/AdvReac Type Severity Reaction Status Date / Time Penicillins Allergy Swelling Verified 07/23/24 03:33 Review of Systems ROS Statement: Those systems with pertinent positive or pertinent negative responses have been documented in the HPI. ROS Other: All systems not noted in ROS Statement are negative. 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, [facility], PT UNWILLING TO GIVE SURGICAL HX-JUST STATES " I'VE HAD A LOT OF THEM" Past Anesthesia/Blood Transfusion Reactions: Postoperative Nausea & Vomiting (PONV) Additional Past Anesthesia/Blood Transfusion Reaction / Comment(s): COMES OUT OF ANESTHESIA IN A PANIC ATTACK Past Psychological History: Anxiety, Bipolar, Panic Disorder, PTSD Smoking Status: Current every day smoker, Vaper Past Alcohol Use History: None Reported Past Drug Use History: None Reported - Past Family History Mother Family Medical History: No Reported History General Exam Limitations: no limitations General appearance: alert, in no apparent distress Head exam: Present: atraumatic, normocephalic Eye exam: Present: normal appearance, PERRL ENT exam: Present: normal exam Neck exam: Present: normal inspection. Absent: tenderness, meningismus Respiratory exam: Present: normal lung sounds bilaterally. Absent: respiratory distress Cardiovascular Exam: Present: regular rate, normal rhythm Extremities exam: Present: other (Fourth digit left hand. There is a surgical incision which is well-healed, pin is intact. There is normal alignment of the distal phalanx) Course Vital Signs 07/23/24 03:29 Temperature 98.1 F Pulse Rate 66 Respiratory 18 Rate Blood Pressure 134/87 O2 Sat by Pulse 98 Oximetry Medical Decision Making - Medical Decision Making Was pt. sent in by a medical professional or institution (DOMENIC Li, TAX CLERK, urgent care, hospital, or [facility]...) When possible be specific @ -No Did you speak to anyone other than the patient for history (EMS, parent, family, police, friend...)? What history was obtained from this source @ -No Did you review nursing and triage notes (agree or disagree)? Why? @ -I reviewed and agree with nursing and triage notes Were old charts reviewed (outside hosp., previous admission, EMS record, old EKG, old radiological studies, urgent care reports/EKG's, [facility] records)? Report findings @ -No old charts were reviewed Differential Diagnosis: Injury to the fourth digit left hand postop. EKG interpreted by me (3pts min.). @ -As above X-rays interpreted by me (1pt min.). @ -None done CT interpreted by me (1pt min.). @ -None done U/S interpreted by me (1pt. min.). @ -None done What testing was considered but not performed or refused? (CT, X-rays, U/S, labs)? Why? @ -None What meds were considered but not given or refused? Why? @ -None Did you discuss the management of the patient with other professionals (professionals i.e. DOMENIC Li, TAX CLERK, lab, RT, psych nurse, social worker clinical, wire rigger, teacher, communications officer, protective services case worker)? Give summary @ -No Was smoking cessation discussed for >3mins.? @ -No Was critical care preformed (if so, how long)? @ -No Were there social determinants of health that impacted care today? How? (Homelessness, low income, unemployed, alcoholism, drug addiction, transportation, low edu. Level, literacy, decrease access to med. care, [place] [facility], rehab)? @ -No Was there de-escalation of care discussed even if they declined (Discuss DNR or withdrawal of care, Hospice)? DNR status @ -No What co-morbidities impacted this encounter? (DM, HTN, Smoking, COPD, CAD, Cancer, CVA, ARF, Chemo, Hep., AIDS, mental health diagnosis, sleep apnea, mor bid obesity)? @ -None Was patient admitted / discharged? Hospital course, mention meds given and route, prescriptions, significant lab abnormalities, going to OR and other pertinent info. @ -[Patient's splint and bandage has been removed he states he has been removing this secondary to needing to wear gloves for work. He had minor injury resulting in increased pain. Patient's pain is treated with morphine and Toradol in the emergency department. He is instructed to maintain a splint and bandage on his finger and call his orthopedic surgeon for reevaluation. Undiagnosed new problem with uncertain prognosis? @ -No Drug Therapy requiring intensive monitoring for toxicity (Heparin, Nitro, Insulin, Cardizem)? @ -No Were any procedures done? @ -No Diagnosis/symptom? @ -[Fourth finger pain, postop Acute, or Chronic, or Acute on Chronic? @Acute Uncomplicated (without systemic symptoms) or Complicated (systemic symptoms)? @ -Default Side effects of treatment? @ -No Exacerbation, Progression, or Severe Exacerbation? @ -No Poses a threat to life or bodily function? How? (Chest pain, [place], [place], pneumonia, PE, COPD, DKA, ARF, appy, cholecystitis, CVA, Diverticulitis, Homicidal, Suicid al, threat to staff... and all critical care pts) @ -No Disposition Clinical Impression: Post-op pain Disposition: HOME SELF-CARE Condition: Good Instructions (If sedation given, give patient instructions): ORIF (DC) Is patient prescribed a controlled substance at d/c from ED?: No Referrals: Gab Beverly MD [Primary Care Provider] - 1-2 days Yessi Phillip DO [Doctor of Osteopathic Medicine] - 1-2 days Time of Disposition: 03:49
[2024-07-23] MEDS: MORPHINE SULFATE 4 MG/ML SYRINGE IM STA (03:51)
[2024-07-23] MEDS: KETOROLAC 15 MG/ML 1 ML VIAL IM STA (03:51)
[2024-07-23 04:10] VITALS: BP 130/87; PULSE 71; TEMP 98
== END 2024-07-23 04:08 | disposition home or self-care (01) ==
LOC: EC 03:23
CPT/HCPCS: 96372; 99283

== ENCOUNTER 2024-07-31 07:56 | Emergency (ER) | payer OTHER ==
[2024-07-31 08:12] VITALS: RESP 18
--- NOTE | 2024-07-31 08:44 | ED ---
General Adult HPI - General Chief complaint: Wound/Laceration Stated complaint: L Finger Injury Time Seen by Provider: 07/31/24 08:14 Source: patient, RN notes reviewed Mode of arrival: ambulatory Limitations: no limitations - History of Present Illness Initial comments: 34-year-old male presents emergency department chief complaint of left hand fourth digit finger infection. Patient had surgery by Dr. HANNON earlier this month. Patient states he has a pain he states he did have his initial follow-up ointment was told he is not to be seen for another 6 weeks. He states he has been noticed some drainage around the pin and is concerned for possible infection. Patient states he attempted to contact the office but was told to need to follow-up with PCP. Patient denies any fevers or chills denies any other associated symptoms. - Related Data Home Medications Medication Instructions Recorded Confirmed Ferrous Sulfate [Iron] 325 mg PO DAILY 07/11/24 07/11/24 Loxapine Succinate [Loxapine] 25 mg PO HS 07/11/24 07/11/24 hydrOXYzine pamoate [Vistaril] 50 mg PO BID 07/11/24 07/11/24 lamoTRIgine [lamoTRIgine ER] 250 mg PO HS 07/11/24 07/11/24 Previous Rx's Medication Instructions Recorded methylPREDNISolone Dose Pack 4 mg PO DIRECTED #1 packet 07/14/24 [Medrol Dose Pack] traMADol HCl [Ultram] 50 mg PO Q6HR PRN #5 tab 07/14/24 Sulfamethox-Tmp 800-160Mg [Bactrim 1 each PO Q12HR #20 tab 07/31/24 Ds] Allergies Allergy/AdvReac Type Severity Reaction Status Date / Time Penicillins Allergy Swelling Verified 07/31/24 08:12 Review of Systems ROS Statement: Those systems with pertinent positive or pertinent negative responses have been documented in the HPI. ROS Other: All systems not noted in ROS Statement are negative. 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, [facility], PT UNWILLING TO GIVE SURGICAL HX-JUST STATES " I'VE HAD A LOT OF THEM" Past Anesthesia/Blood Transfusion Reactions: Postoperative Nausea & Vomiting (PONV) Additional Past Anesthesia/Blood Transfusion Reaction / Comment(s): COMES OUT OF ANESTHESIA IN A PANIC ATTACK Past Psychological History: Anxiety, Bipolar, Depression, Panic Disorder, PTSD Smoking Status: Current every day smoker, Vaper Past Alcohol Use History: None Reported Past Drug Use History: Marijuana - Past Family History Mother Family Medical History: No Reported History General Exam Limitations: no limitations General appearance: alert, in no apparent distress Head exam: Present: atraumatic, normocephalic, normal inspection Respiratory exam: Present: normal lung sounds bilaterally. Absent: respiratory distress, wheezes, rales, rhonchi, stridor Cardiovascular Exam: Present: regular rate, normal rhythm, normal heart sounds. Absent: systolic murmur, diastolic murmur, rubs, gallop, clicks Extremities exam: Present: other (Left hand fourth digit there is surgical pain distal tip with no significant surrounding erythema or obvious drainage at this time there is a healing wound on the dorsal aspect of the digit) Skin exam: Present: warm, dry, intact, normal color. Absent: rash Course Vital Signs 07/31/24 08:07 Temperature 97.5 F L Pulse Rate 71 Respiratory 18 Rate Blood Pressure 128/80 O2 Sat by Pulse 99 Oximetry Medical Decision Making - Medical Decision Making Was pt. sent in by a medical professional or institution (DOMENIC Li, MANUFACTURING ENGINEERING PROFESSOR, urgent care, hospital, or custodial...) When possible be specific @ -No Did you speak to anyone other than the patient for history (EMS, parent, family, police, friend...)? What history was obtained from this source @ -No Did you review nursing and triage notes (agree or disagree)? Why? @ -I reviewed and agree with nursing and triage notes Were old charts reviewed (outside hosp., previous admission, EMS record, old EKG, old radiological studies, urgent care reports/EKG's, custodial records)? Report findings @ -No old charts were reviewed Differential Diagnosis (chest pain, altered mental status, abdominal pain women, abdominal pain men, vaginal bleeding, weakness, fever, dyspnea, syncope, headache, dizziness, GI bleed, back pain, seizure, CVA, palpatations, mental health, musculoskeletal)? @ -Finger fracture, postoperative pain, postoperative infection EKG interpreted by me (3pts min.). @ -None X-rays interpreted by me (1pt min.). @ -X-ray left hand fourth digit showing pin placement with a phalanx fracture CT interpreted by me (1pt min.). @ -None done U/S interpreted by me (1pt. min.). @ -None done What testing was considered but not performed or refused? (CT, X-rays, U/S, labs)? Why? @ -None What meds were considered but not given or refused? Why? @ -None Did you discuss the management of the patient with other professionals (professionals i.e. , PA, MANUFACTURING ENGINEERING PROFESSOR, lab, RT, psych nurse, social service assistant, client specialist, teacher, court officer, onsite case manager)? Give summary @ -Discussed case with orthopedics, Yary Villa evaluated the patient patient discharged on oral antibiotics and follow-up next week. Was smoking cessation discussed for >3mins.? @ -No Was critical care preformed (if so, how long)? @ -No Were there social determinants of health that impacted care today? How? (Homelessness, low income, unemployed, alcoholism, drug addiction, transportation, low edu. Level, literacy, decrease access to med. care, alf, rehab)? @ -No Was there de-escalation of care discussed even if they declined (Discuss DNR or withdrawal of care, Hospice)? DNR status @ -No What co-morbidities impacted this encounter? (DM, HTN, Smoking, COPD, CAD, Cancer, CVA, ARF, Chemo, Hep., AIDS, mental health diagnosis, sleep apnea, morbid obesity)? @ -None Was patient admitted / discharged? Hospital course, mention meds given and route, prescriptions, significant lab abnormalities, going to OR and other pertinent info. @ -Discharged on oral antibiotics with follow-up with orthopedics next week domenic paul was evaluated in the emergency department by orthopedics Undiagnosed new problem with uncertain prognosis? @ -No Drug Therapy requiring intensive monitoring for toxicity (Heparin, Nitro, Insulin, Cardizem)? @ -No Were any procedures done? @ -No Diagnosis/symptom? @ -Finger infection Acute, or Chronic, or Acute on Chronic? @ -Acute Uncomplicated (without systemic symptoms) or Complicated (systemic symptoms)? @ -Uncomplicated Side effects of treatment? @ -No Exacerbation, Progression, or Severe Exacerbation? @ -No Poses a threat to life or bodily function? How? (Chest pain, [place], [place], pneumonia, PE, COPD, DKA, ARF, appy, cholecystitis, CVA, Diverticulitis, Homicidal, Suicidal, threat to staff... and all critical care pts) @ -No Disposition Clinical Impression: Post-op pain, Finger infection Disposition: HOME SELF-CARE Condition: Stable Additional Instructions: Follow-up with orthopedics next week as directed. Please return to the Emergency Department if symptoms worsen or any other concerns. Prescriptions: Sulfamethox-Tmp 800-160Mg [Bactrim Ds] 1 each PO Q12HR #20 tab Is patient prescribed a controlled substance at d/c from ED?: No Referrals: Gab Beverly MD [Primary Care Provider] - 1-2 days Time of Disposition: 10:03
--- NOTE | 2024-07-31 09:15 | XR ---
EXAMINATION TYPE: XR finger LT DATE OF EXAM: 07/31/2024 CLINICAL HISTORY: pain TECHNIQUE: 3 views of the left 4th digit are submitted. COMPARISON: None FINDINGS: Postoperative changes with fixation pin traversing the DIP joint of the left fourth digit. Tractor the base of the distal phalanx is noted. There is soft tissue swelling seen without bony dest ructive process noted. No definite evidence for osteomyelitis. IMPRESSION: As above [facility], , 07/31/2024 9:13 AM
[2024-07-31 10:18] VITALS: BP 124/82; PULSE 72; TEMP 97.7
--- NOTE | 2024-07-31 10:44 | P.CNOR ---
History of Present Illness - HPI Consult date: 07/31/24 Consult reason: other (Post op left ring finger) History of present illness: Kaylyn presented to the ED at [facility] with issues with this left ring finger. He is status post left ring finger distal phalanx open reduction internal fixation on 07/14/[address] Phillip. He was seen post op in the office on 07/21/2024 and it was planned that we would keep the pin in for 3 more weeks. The patient states his finger splint comes off at night and he pushed his pin in more when that happened. He also states he had a blister on the tip of the finger that was draining pus at some point. He tried to call his PCP's office and they states they were unable to get him into our office anytime soon. It was unclear if he actually called our office directly. The patient was evaluated in the ED today. He states he is having pain in the finger. Denies recent drainage, fever and chills. Review of Systems Constitutional: Denies chills, Denies fatigue, Denies fever Cardiovascular: Reports chest pain Respiratory: Denies cough Musculoskeletal: left: hand pain, hand stiffness, hand swelling Past Medical History Past Medical History: No Reported History, Seizure Disorder Additional Past Medical History / Comment(s): SEIZURE 06/13/24, FX LT FINGER, HYDROCEPHALUS AND ANEMIA History of Any Multi-Drug Resistant Organisms: None Reported Past Surgical History: Orthopedic Surgery Additional Past Surgical History / Comment(s): EDITING INTERNSHIP shunt, BILAT CTR, PT UNWILLING TO GIVE SURGICAL HX-JUST STATES " I'VE HAD A LOT OF THEM" Past Anesthesia/Blood Transfusion Reactions: Postoperative Nausea & Vomiting (PONV) Additional Past Anesthesia/Blood Transfusion Reaction / Comm: COMES OUT OF ANESTHESIA IN A PANIC ATTACK Past Psychological History: Anxiety, Bipolar, Depression, Panic Disorder, PTSD Smoking Status: Current every day smoker, Vaper Past Alcohol Use History: None Reported Past Drug Use History: Marijuana - Past Family History Mother Family Medical History: No Reported History Medications and Allergies Home Medications Medication Instructions Recorded Confirmed Type Ferrous Sulfate [Iron] 325 mg PO DAILY 07/11/24 07/11/24 History Loxapine Succinate [Loxapine] 25 mg PO HS 07/11/24 07/11/24 History hydrOXYzine pamoate [Vistaril] 50 mg PO BID 07/11/24 07/11/24 History lamoTRIgine [lamoTRIgine ER] 250 mg PO HS 07/11/24 07/11/24 History methylPREDNISolone Dose Pack 4 mg PO DIRECTED #1 packet 07/14/24 Rx [Medrol Dose Pack] traMADol HCl [Ultram] 50 mg PO Q6HR PRN #5 tab 07/14/24 Rx Sulfamethox-Tmp 800-160Mg [Bactrim 1 each PO Q12HR #20 tab 07/31/24 Rx Ds] Allergies Allergy/AdvReac Type Severity Reaction Status Date / Time Penicillins Allergy Swelling Verified 07/31/24 08:12 Physical Examination The patient is a 34 y/o male in no acute distress. Exam of the left ring finger - Incision is healing well. There is no erythema or signs of infection. Jurgan ball appears to be pushed into the tip of the finger but the pin appears stable. The Jur[place] ball was removed with the Jurgan ball screw hammer driver. No signs of infection or drainge from the pin site. The [place]gan ball was reapplied and positioned off the skin. Vascular exam is unremarkable with normal pulses, color, warmth and capillary refill. Sensation is intact to light touch to forearm and fingertips. Results X-ray of the left hand reveals a stable position of pin through the distal phalanx of the left ring finger. No signs of loosening or migration. Assessment and Plan (1) Finger pain, left Status: Acute Code(s): M79.645 - PAIN IN LEFT FINGER(S) SNOMED Code(s): 09859676 Plan: The clinical and x-rays findings were discussed with the patient and ED staff. The case was discussed with Dr. Phillip. The patient will continue to protect the pin with the finger splint. Pin care instructions were reviewed again. He will be started on Bactrim BID for 10 days as a precaution. He will follow up next week for reevaluation or sooner if issues arise. The patient was instructed to call our office directly if he has any issues.
== END 2024-07-31 10:18 | disposition home or self-care (01) ==
LOC: EC 07:56
CPT/HCPCS: 99283